=== PATIENT | female | born 1995 | race Two or more races ===

== ENCOUNTER 2020-04-24 11:22 | Emergency (ER) | payer MEDICAID ==
[~2020-04-24] VITALS: Ht 167.6 cm; Wt 90.7 kg
[2020-04-24] MEDS ORDERED: ONDANSETRON HCL/PF 4 MG/2 ML VIAL ONE (11:52)
[2020-04-24] MEDS ORDERED: ONDANSETRON HCL/PF 4 MG/2 ML VIAL IVP ONE (12:00)
[2020-04-24] MEDS ORDERED: IV NS 0.9% 1,000 ML BAG IV ONE (12:00)
--- NOTE | 2020-04-24 12:08 | NUR ---
pt trec's to er c/o abd pain 7/10 n/v x3 since last night . no period olaf 3 monthjs . iv started left ac labs sent waiting for uans bolus and zofran 4 mg ivp now
--- NOTE | 2020-04-24 13:10 | NUR ---
[pt was able to give ua back to bed pt stated not feeling n/v
[2020-04-24 13:35] LABS: BILIRUBIN,URINE Negative (NEGATIVE); COLOR,URINE YELLOW (YELLOW); LEUKOCYTE ESTERASE ,URINE Trace (NEGATIVE); NITRITE, URINE Positive (NEGATIVE); PH,URINE 5.5 (5.0-8.0); PROTEIN,URINE Negative (NEGATIVE); UGLUCOSE Negative (NEGATIVE); UROBILINOGEN,URINE 0.2 EU/dL (0.2)
[2020-04-24 13:35] LABS: BASOPHILS % (AUTO) 0.4 % (0.0-2.0); EOSINOPHILS % (AUTO) 0.4 % (0.0-6.0); HEMATOCRIT 29 % (33-45); HEMOGLOBIN 9.5 g/dL (11.5-14.8); LYMPHOCYTES # (AUTO) 1.5 /CMM (0.8-4.8); LYMPHOCYTES % (AUTO) 15.6 % (20.0-44.0); MEAN CORPUSCULAR HGB CONC 32 g/dl (31.0-36.0); MEAN CORPUSCULAR VOLUME 86 fL (82-100); MONOCYTES # (AUTO) 0.6 /CMM (0.1-1.30); MONOCYTES % (AUTO) 6.3 % (2.0-12.0); NEUTROPHILS # (AUTO) 7.5 /CMM (1.8-8.9); NEUTROPHILS % (AUTO) 77.3 % (43.0-81.0); PLATELET COUNT (AUTO) 331 /CMM (150-450); RED BLOOD CELL COUNT(AUTO) 3.41 MIL/uL (4.0-5.2); WHITE BLOOD COUNT (AUTO) 9.7 K/uL (4.3-11.0)
[2020-04-24 13:41] LABS: BACTERIA,URINE 2+ /HPF (None Seen); RBC,URINE NONE SEEN /HPF (0-2); SQUAMOUS EPITHELIAL CELL,UR Few /HPF (None Seen)
[2020-04-24] MEDS ORDERED: CEFTRIAXONE 1GM BAG (ER ONLY) 50 ML IV ONE (14:18)
[2020-04-24 14:20] VITALS: BP 124/69
--- NOTE | 2020-04-24 14:21 | NUR ---
Appears comfortable. NO obvious distress for discharge Patient discharged to home in stable condition. Written and verbal after care instructions given. Patient verbalizes understanding of instruction.
[2020-04-24] MEDS ORDERED: CEFTRIAXONE 1 G in IV D5W 50 ML IV ONE (14:30)
[2020-04-24 17:17] LABS: CALCIUM, SERUM 8.7 mg/dL (8.5-10.1); CREATININE 0.5 mg/dL (0.6-1.3); POTASSIUM 3.4 mmol/L (3.5-5.1)
[2020-04-24 17:18] LABS: ALBUMIN 2.9 g/dL (3.4-5.0); BILIRUBIN,DIRECT 0.1 mg/dL (0.0-0.2); BILIRUBIN,TOTAL 0.3 mg/dL (0.2-1.0); TOTAL PROTEIN, SERUM 7.8 g/dL (6.4-8.2)
== END 2020-04-24 14:21 | disposition home or self-care (01) ==
LOC: ER 11:30
DX: O23.41 Unspecified infection of urinary tract in pregnancy, first trimester (principal); O21.9 Vomiting of pregnancy, unspecified; R10.84 Generalized abdominal pain; Z98.890 Other specified postprocedural states; Z3A.00 Weeks of gestation of pregnancy not specified
CPT/HCPCS: 36415; 80048; 80076; 81001; 83690; 84484; 84703; 85025; 87086; 96361; 96374; 99283; J0696; J2405; J7030; 87186-TC; J7060

== ENCOUNTER 2020-07-05 05:56 | Emergency (ER) | payer MEDICAID ==
[~2020-07-05] VITALS: Ht 167.6 cm; Wt 86.2 kg
[2020-07-05 05:56] VITALS: BP 146/81
--- NOTE | 2020-07-05 06:00 | NUR ---
PATIENT CAME TO THE ER BED 16 C/O NON-SPECIFIC ABDOMINAL PAIN SINCE TODAY W/ NAUSEA AND DIARRHEA. PT ALSO STATES THAT SHE HAS UTI SHE HAS ANTIBIOTICS, BUT ISN'T TAKING ANY AT THE MOMENT. PATIENT STATES THAT SHE IS , AND DOES NOT KNOW HOW MANY WEEKS . PATIENT ADMITS TO NOT TAKING PRENATALS AND NOT SEEING AN OB-[facility] TECHNICIAN. PATIENT IS AAOX4. AMBULATORY WITH A STEADY GAIT. BREATHING EVENLY AND UNLABORED ON ROOM AIR. CONNECTED TO THE MONITOR.
--- NOTE | 2020-07-05 06:19 | NUR ---
PATIENT LEFT WITHOUT DISCHARGE INSTRUCTIONS.
== END 2020-07-05 06:26 | disposition home or self-care (01) ==
LOC: ER 05:58
DX: R10.84 Generalized abdominal pain (principal); R11.2 Nausea with vomiting, unspecified; Z98.890 Other specified postprocedural states

== ENCOUNTER 2021-02-06 02:23 | Emergency (ER) | payer MEDICAID ==
[~2021-02-06] VITALS: Ht 167.6 cm; Wt 81.6 kg
[2021-02-06] MEDS ORDERED: ONDANSETRON HCL/PF 4 MG/2 ML VIAL ONE (02:48)
--- NOTE | 2021-02-06 02:49 | NUR ---
PT AAOX4. BIBSELF C/O LOWER BACK PAIN, PLACED IN BED 6 ON MONITOR AND PULSE OX. ER MD AT BEDSIDE FOR EVAL. AWAITING ORDERS.
--- NOTE | 2021-02-06 02:50 | NUR ---
URINE COLLECTED, SENT TO LAB.
[2021-02-06] MEDS ORDERED: IV NS 0.9% 1,000 ML BAG IV ONE (03:00)
[2021-02-06] MEDS ORDERED: ONDANSETRON HCL/PF 4 MG/2 ML VIAL IVP ONE (03:00)
[2021-02-06 03:39] LABS: BASOPHILS % (AUTO) 0.1 % (0.0-2.0); EOSINOPHILS % (AUTO) 1.2 % (0.0-6.0); HEMATOCRIT 36 % (33-45); HEMOGLOBIN 11.2 g/dL (11.5-14.8); LYMPHOCYTES % (AUTO) 11.3 % (20.0-44.0); MEAN CORPUSCULAR HGB CONC 31 g/dl (31.0-36.0); MEAN CORPUSCULAR VOLUME 74 fL (82-100); MONOCYTES # (AUTO) 0.4 K/uL (0.1-1.30); MONOCYTES % (AUTO) 4.8 % (2.0-12.0); NEUTROPHILS # (AUTO) 7.4 K/uL (1.8-8.9); NEUTROPHILS % (AUTO) 82.6 % (43.0-81.0); PLATELET COUNT (AUTO) 286 K/uL (150-450); RED BLOOD CELL COUNT(AUTO) 4.85 MIL/uL (4.0-5.2); WHITE BLOOD COUNT (AUTO) 8.9 K/uL (4.3-11.0)
--- NOTE | 2021-02-06 03:40 | NUR ---
PATIENT GOING TO CT
[2021-02-06] MEDS ORDERED: DICYCLOMINE HCL INJ 20 MG/2 ML AMPUL IM ONE ×2 (04:00→04:06)
[2021-02-06 04:14] LABS: CALCIUM, SERUM 9.3 mg/dL (8.5-10.1); CREATININE 0.7 mg/dL (0.6-1.3); POTASSIUM 3.7 mmol/L (3.5-5.1)
[2021-02-06 04:25] LABS: ALBUMIN 3.8 g/dL (3.4-5.0); BILIRUBIN,DIRECT 0.1 mg/dL (0.0-0.2); BILIRUBIN,TOTAL 0.3 mg/dL (0.2-1.0); TOTAL PROTEIN, SERUM 8.1 g/dL (6.4-8.2)
[2021-02-06 04:34] LABS: BILIRUBIN,URINE SMALL (NEGATIVE); COLOR,URINE YELLOW (YELLOW); LEUKOCYTE ESTERASE ,URINE NEGATIVE (NEGATIVE); NITRITE, URINE NEGATIVE (NEGATIVE); PROTEIN,URINE NEGATIVE (NEGATIVE); UGLUCOSE NEGATIVE (NEGATIVE); UROBILINOGEN,URINE 0.2 EU/dL (0.2)
[2021-02-06 04:46] LABS: BACTERIA,URINE Many /HPF (None Seen); MUCUS,URINE Moderate /LPF (None Seen); RBC,URINE 0-2 /HPF (0-2); SQUAMOUS EPITHELIAL CELL,UR Moderate /HPF (None Seen)
[2021-02-06 04:47] LABS: CALCIUM OXALATE CRYSTALS,UR Many /HPF (None Seen)
[2021-02-06] MEDS ORDERED: CIPR500T5 PO (04:56)
[2021-02-06] MEDS ORDERED: METR500T PO (04:56)
--- NOTE | 2021-02-06 05:19 | NUR ---
Patient discharged to home in stable condition. Written and verbal after care instructions given. Patient verbalizes understanding of instruction.
[2021-02-06 05:22] VITALS: BP 130/74
== END 2021-02-06 05:23 | disposition home or self-care (01) ==
LOC: ER 02:23
DX: K52.9 Noninfective gastroenteritis and colitis, unspecified (principal); Z98.890 Other specified postprocedural states
CPT/HCPCS: 36415; 74176; 80048; 80076; 81001; 83690; 84703; 85025; 87086; 96361; 96372; 96374; 99285; J0500; J2405; J7030

== ENCOUNTER 2022-04-08 01:48 | Emergency (ER) | payer MEDICAID ==
[~2022-04-08] VITALS: Ht 167.6 cm; Wt 81.6 kg
[~2022-04-08 01:48] MED LIST: CIPR500T5 PO; METR500T PO
--- NOTE | 2022-04-08 02:05 | NUR ---
TO ER BED 1. BIBS C/O "SWELLING TO RIGHT FIRST AND SECOND TOE" X2DAYS. DENIES TRAUMA. AMBULATORY WITH STEADY GAIT. RR EVEN AND NONLABORED. CONNECTED TO MONITOR
[2022-04-08] MEDS ORDERED: LIDOCAINE MPF 1%-EPI 1:200,000 30 ML VIAL IJ ONE (02:13)
[2022-04-08] MEDS ORDERED: CEPH500C2 PO (02:18)
[2022-04-08] MEDS ORDERED: BACI30OI9 TP (02:18)
[2022-04-08] MEDS ORDERED: LIDOCAINE 2% 20 ML MDV TP ONE (02:30)
[2022-04-08] MEDS ORDERED: SULF1TAB48 PO (03:31)
[2022-04-08] MEDS ORDERED: IBUP-1953 PO (03:33)
[2022-04-08 03:44] VITALS: BP 131/72
--- NOTE | 2022-04-08 03:44 | NUR ---
Patient discharged to home in stable condition. Written and verbal after care instructions given. Patient verbalizes understanding of instruction.
== END 2022-04-08 03:45 | disposition home or self-care (01) ==
LOC: ER 01:52
DX: L02.611 Cutaneous abscess of right foot (principal); Z79.899 Other long term (current) drug therapy
CPT/HCPCS: 99283; 10060; A6403; J3490

== ENCOUNTER 2022-05-02 07:26 | Emergency (ER) | payer MEDICAID ==
[~2022-05-02] VITALS: Ht 167.6 cm; Wt 81.6 kg
[~2022-05-02 07:26] MED LIST changes: +BACI30OI9 TP; +CEPH500C2 PO; +IBUP-1953 PO; +SULF1TAB48 PO
--- NOTE | 2022-05-02 07:26 | NUR ---
BIBS C/O RLQ ABDOMINAL PAIN STARTED YESTERDAY +DIARRHEA, PAIN IS 8/10. PT IS A&OX4. ATTACHED TO MONITOR, VITALS ARE WITHIN NORMAL LIMITS, NO RESPIRATORY DISTRESS NOTED. AWAITING MD WILLIAMSON.
--- NOTE | 2022-05-02 07:26 | NUR ---
BIBS C/O RLQ ABDOMINAL PAIN STARTED YESTERDAY +DIARRHEA, PAIN IS 8/10
--- NOTE | 2022-05-02 07:35 | NUR ---
DR TROTTER AT BEDSIDE FOR EVAL
--- NOTE | 2022-05-02 07:41 | NUR ---
URINE COLLECTED AND SENT
[2022-05-02] MEDS ORDERED: DICYCLOMINE HCL 10 MG/5 ML UDC ONE (07:59)
[2022-05-02] MEDS ORDERED: ONDANSETRON 4 MG TAB.RAPDIS ONE (08:00)
[2022-05-02] MEDS ORDERED: DICYCLOMINE HCL 10 MG/5 ML UDC PO ONE (08:00)
[2022-05-02] MEDS ORDERED: ONDANSETRON 4 MG TAB.RAPDIS SL ONE (08:00)
[2022-05-02 08:07] LABS: BASOPHILS % (AUTO) 0.1 % (0.0-2.0); EOSINOPHILS % (AUTO) 0.6 % (0.0-6.0); HEMATOCRIT 35 % (33-45); HEMOGLOBIN 11.4 g/dL (11.5-14.8); LYMPHOCYTES # (AUTO) 1.1 K/uL (0.8-4.8); LYMPHOCYTES % (AUTO) 12.4 % (20.0-44.0); MEAN CORPUSCULAR HGB CONC 33 g/dl (31.0-36.0); MEAN CORPUSCULAR VOLUME 82 fL (82-100); MONOCYTES # (AUTO) 0.3 K/uL (0.1-1.30); MONOCYTES % (AUTO) 4.1 % (2.0-12.0); NEUTROPHILS # (AUTO) 7.1 K/uL (1.8-8.9); NEUTROPHILS % (AUTO) 82.8 % (43.0-81.0); PLATELET COUNT (AUTO) 337 K/uL (150-450); RED BLOOD CELL COUNT(AUTO) 4.26 MIL/uL (4.0-5.2); WHITE BLOOD COUNT (AUTO) 8.6 K/uL (4.3-11.0)
[2022-05-02 08:08] LABS: BILIRUBIN,URINE 2+ (NEGATIVE); COLOR,URINE DARK YELLOW (YELLOW); LEUKOCYTE ESTERASE ,URINE NEGATIVE (NEGATIVE); NITRITE, URINE POSITIVE (NEGATIVE); PROTEIN,URINE 1+ mg/dl (NEGATIVE); UGLUCOSE NEGATIVE (NEGATIVE); UROBILINOGEN,URINE 0.2 EU/dL (0.2)
[2022-05-02 08:09] LABS: BACTERIA,URINE Rare /HPF (None Seen); CALCIUM OXALATE CRYSTALS,UR Many /HPF (None Seen); RBC,URINE 0-2 /HPF (0-2); SQUAMOUS EPITHELIAL CELL,UR Moderate /HPF (None Seen)
[2022-05-02 08:18] LABS: ALBUMIN 2.8 g/dL (3.4-5.0); BILIRUBIN,TOTAL 0.3 mg/dL (0.2-1.0); CALCIUM, SERUM 8.5 mg/dL (8.5-10.1); CREATININE 0.6 mg/dL (0.6-1.3); MAGNESIUM 1.9 mg/dL (1.8-2.4); POTASSIUM 3.5 mmol/L (3.5-5.1); TOTAL PROTEIN, SERUM 6.7 g/dL (6.4-8.2)
[2022-05-02] MEDS ORDERED: CEPH500C2 PO (08:55)
--- NOTE | 2022-05-02 09:02 | NUR ---
Patient discharged to home in stable condition. Written and verbal after care instructions given. Patient verbalizes understanding of instruction. Pt left AMA after Dr. Dias explained risks including .
[2022-05-02 09:05] VITALS: BP 130/66
== END 2022-05-02 09:05 | disposition left against medical advice (07) ==
LOC: EDBD 07:31 → ER 07:31
DX: O20.0 Threatened abortion (principal); O26.899 Other specified pregnancy related conditions, unspecified trimester; R82.71 Bacteriuria; R10.31 Right lower quadrant pain; R19.7 Diarrhea, unspecified; Z3A.00 Weeks of gestation of pregnancy not specified; Z79.899 Other long term (current) drug therapy
CPT/HCPCS: 99283; 85025; 87086; 83735; 84703; 81001; 36415; 80053; 84702; Q0162

== ENCOUNTER 2022-07-26 02:45 | Emergency (ER) | payer MEDICAID ==
[~2022-07-26] VITALS: Ht 167.6 cm; Wt 102.5 kg
[2022-07-26 03:04] VITALS: BP 118/66
[2022-07-26] MEDS ORDERED: CEPH500T PO (03:15)
--- NOTE | 2022-07-26 03:20 | NUR ---
Patient does not wish to proceed with medical care recommended by Dr. Hewitt. Pt was advised to stay for admission, but patient refused to stay and requested oral antibiotics. Patient given information related to possible complications, up to and including , which could occur as a result of leaving the hospital at this time. Patient verbalizes understanding of risks involved due to leaving against medical advice. Patient has signed AMA form.
== END 2022-07-26 03:24 | disposition left against medical advice (07) ==
LOC: ER 02:47
DX: L03.116 Cellulitis of left lower limb (principal); Z98.890 Other specified postprocedural states; Z79.899 Other long term (current) drug therapy

== ENCOUNTER 2023-06-22 00:47 | Emergency (ER) | payer MEDICAID, OTHER ==
[~2023-06-22] VITALS: Ht 167.6 cm; Wt 81.6 kg
[~2023-06-22 00:47] MED LIST changes: -BACI30OI9 TP; -CEPH500C2 PO; +CEPH500T PO; -CIPR500T5 PO; -IBUP-1953 PO; -METR500T PO; -SULF1TAB48 PO
[2023-06-22 01:05] VITALS: BP 152/81; TEMP 98.4; O2SAT 98
[2023-06-22] MEDS ORDERED: ONDANSETRON 4 MG TAB.RAPDIS ONE (01:08)
[2023-06-22] MEDS ORDERED: IBUPROFEN 400 MG TABLET ONE (01:08)
[2023-06-22] MEDS: IBUPROFEN 400 MG TABLET PO ONE (01:13)
[2023-06-22] MEDS: ONDANSETRON 4 MG TAB.RAPDIS SL ONE (01:13)
== END 2023-06-22 01:14 | disposition home or self-care (01) ==
LOC: ER 00:51
DX: R51.9 Headache, unspecified (principal); Z98.890 Other specified postprocedural states; Z79.899 Other long term (current) drug therapy
CPT/HCPCS: 99283; Q0162

== ENCOUNTER 2025-02-12 19:00 | Emergency (ER) | payer OTHER | END 2025-02-12 20:00 | disposition left against medical advice (07) | LOC: ER 19:06 | DX: Z53.21 Procedure and treatment not carried out due to patient leaving prior to being seen by health care provider (principal) ==

== ENCOUNTER 2025-02-15 19:46 | Emergency (ER) | payer OTHER ==
[~2025-02-15] VITALS: Ht 167.6 cm; Wt 63.5 kg
[2025-02-15] MEDS ORDERED: IV NS 0.9% 1,000 ML BAG IV ONE (21:00)
[2025-02-15] MEDS ORDERED: VANCOMYCIN 1 GM in IV D5W 250 ML IV ONE (21:00)
[2025-02-15] MEDS ORDERED: PIPERACILLIN /TAZOBACTAM 3.375 G in IV D5W 50 ML IV ONE (21:00)
[2025-02-15 21:05] VITALS: BP 12/77; TEMP 99.7; O2SAT 97
[2025-02-15] MEDS ORDERED: CLIN300C12 PO (21:15)
== END 2025-02-15 21:06 | disposition left against medical advice (07) ==
LOC: ER 19:47
DX: R60.0 Localized edema (principal)
CPT/HCPCS: 99283; J3373; J2543; J7060